=== PATIENT | female | born 1965 | race Caucasian/White ===

== ENCOUNTER 2018-05-22 20:30 | Outpatient (CLI) | payer BC | END 2018-05-22 20:31 | disposition home or self-care (01) | LOC: SLEEPLAB 20:30 | PROVIDERS: ATTEND Family Medicine | DX: G47.33 Obstructive sleep apnea (adult) (pediatric) (principal); G47.00 Insomnia, unspecified; R53.83 Other fatigue; R06.83 Snoring; I10 Essential (primary) hypertension; E66.9 Obesity, unspecified; Z68.43 Body mass index [BMI] 50.0-59.9, adult | CPT/HCPCS: 95811 ==

== ENCOUNTER 2018-08-17 15:53 | Outpatient (CLI) | payer BC | END 2018-08-17 15:54 | disposition home or self-care (01) | LOC: BICMAMMO 15:53 | PROVIDERS: ATTEND Family Medicine | DX: Z12.31 Encounter for screening mammogram for malignant neoplasm of breast (principal) | CPT/HCPCS: 77063; 77067 ==

== ENCOUNTER 2019-01-18 08:43 | Outpatient (CLI) | payer BC ==
--- NOTE | 2019-01-18 09:55 | RAD ---
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 The heart and mediastinal contours are grossly unremarkable. Lungs appear clear. The patient underwent a routine barium swallow. The lap band is in a normal anatomic position, seen a t the gastroesophageal junction when the patient is imaged while standing and swallowing contrast med ia. With the patient in the supine position there is gastroesophageal reflux which extends to the reg ion of the thoracic inlet. In the RPO position a small sliding-type hiatal hernia is seen, with a por tion of the gastric fundus sliding above the level of the lap band. The patient ingested a barium tablet which traverses the gastroesophageal junction/LAP-BAND without d elay. IMPRESSION: Gastroesophageal reflux to the level of the thoracic inlet when the patient is in the sup ine position. Transient small sliding type hiatal hernia noted in the RPO position.
== END 2019-01-18 08:44 | disposition home or self-care (01) ==
LOC: RAD 08:43
PROVIDERS: ATTEND Surgery
DX: K21.9 Gastro-esophageal reflux disease without esophagitis (principal); K44.9 Diaphragmatic hernia without obstruction or gangrene
CPT/HCPCS: 74220

== ENCOUNTER 2019-02-18 09:37 | Outpatient (CLI) | payer BC | END 2019-02-18 09:38 | disposition home or self-care (01) | LOC: DTY/OP 09:37 | PROVIDERS: ATTEND Surgery | DX: E66.01 Morbid (severe) obesity due to excess calories (principal) | CPT/HCPCS: 97802 ==

== ENCOUNTER 2019-03-15 22:08 | Observation (INO) | payer BC ==
[2019-03-15] MEDS ORDERED: diphenhydrAMINE 25 MG CAP ONE (22:35)
[2019-03-15] MEDS ORDERED: methylPREDNISolone Sod Succ/PF 125 MG/2 ML VIAL ONE (22:38)
[2019-03-15] MEDS ORDERED: diphenhydrAMINE 50 MG/ML VIAL ONE (22:38)
[2019-03-15] MEDS ORDERED: Famotidine/PF 20 mg/2ml Vial ONE (22:38)
[2019-03-15 23:32] LABS: #Eosinphils 0.2 thou/uL (0.0-0.7); #Lymphocytes 2.7 thou/uL (1.20-3.40); #Monocytes 0.7 thou/uL (0.11-0.59); #Neutrophils 4.7 thou/uL (1.40-6.50); %Basophils 0.2 % (0.0-1.0); %Eosinophils 2.5 % (0.0-10.0); %Lymphocytes 32.7 % (21.0-51.0); %Monocytes 7.9 % (0.0-10.0); %Neutrophils 56.6 % (42.0-75.0); Anisocytosis SLIGHT = 6-15 cells (100X) (0-5/hpf); Elliptocytes SLIGHT = 2-5 cells (100X) (0-1/hpf); Hemoglobin 7.7 g/dL (12.0-16.0); Hypochromia SLIGHT = 6-15 cells (100X) (0-5/hpf); MDiff Complete? YES; Mean Corpuscular HGB CONC 28.2 g/dL (32.0-36.0); Mean Corpuscular Hemoglobin 18.1 pg (27.0-31.0); Mean Platelet Volume 7.7 fL (7.4-10.4); Microcytosis MODERATE=15-30 cells (100X) (0-5/hpf); Platelet Count 227 thou/uL (130-400); Platelet Morphology Comment Appears Adequate; Red Blood Cell (RBC) Count 4.27 mill/uL (4.20-5.40); Reflex for Review?? YES; White Blood Cell (WBC) Count 8.4 thou/uL (4.8-10.8)
[2019-03-15 23:34] LABS: ALT (SGPT) 35 U/L (8-55); AST (SGOT) 39 U/L (5-34); Albumin 3.9 g/dL (3.5-5.0); Alkaline Phosphatase 73 U/L (40-150); Anion Gap 11 mmol/L (10-20); BUN (Urea Nitrogen) 15 mg/dL (9.8-20.1); Bilirubin, Total 0.6 mg/dL (0.2-1.2); Calc. Creatinine Clearance 0 mL/min (70-130); Calcium 9.4 mg/dL (7.8-10.44); Carbon Dioxide 27 mmol/L (22-29); Chloride 104 mmol/L (98-107); Estimated GFR-MDRD 81; Globulin 3.3 g/dL (2.4-3.5); Glucose 102 mg/dL (70-105); Potassium 3.8 mmol/L (3.5-5.1); Protein, Total 7.2 g/dL (6.0-8.3); Sodium 138 mmol/L (136-145)
[2019-03-16 04:02] VITALS: BMI 57.8
[2019-03-16] MEDS ORDERED: Ondansetron ODT 4 MG TAB SL PRN (04:05)
[2019-03-16] MEDS ORDERED: Ondansetron PF 4 MG/2 ML Vial IVP PRN ×2 (04:05→07:46)
[2019-03-16] MEDS ORDERED: Bacteriostatic Water 30 ML VIAL FS PRN (04:06)
[2019-03-16] MEDS: diphenhydrAMINE 50 MG/ML VIAL IVP SCH ×2 (05:53→13:42)
[2019-03-16] MEDS ORDERED: methylPREDNISolone Sod Succ/PF 125 MG/2 ML VIAL IVP SCH ×2 (06:00→14:00)
[2019-03-16] MEDS ORDERED: Acetaminophen 325 MG TAB PO PRN (07:46)
[2019-03-16 08:53] LABS: Iron 19 ug/dL (50-170); Iron Binding Capacity, Total 508 mcg/dL (265-497)
[2019-03-16] MEDS: Pantoprazole 40 MG VIAL IVP SCH ×2 (09:37→20:59)
[2019-03-16] MEDS: Sodium Chloride 0.9% 1,000 ML IV SCH (09:37)
--- NOTE | 2019-03-16 10:36 | RAD ---
CHEST 2 VIEWS: HISTORY: Tobacco history. Anemia. COMPARISON: 02/14/2013. FINDINGS: Cardiomegaly. Pulmonary vessels and hilum are normal. Costophrenic angles are clear. Slight rightward curvature o f the thoracic spine. No pneumothorax or osseous abnormalities. Incompletely evaluated gastric lap band. IMPRESSION: 1. Cardiomegaly. 2. No acute cardiopulmonary process. If there is concern for lung neoplasm, consider low-dose scree gege lung CT. POS: OFF
--- NOTE | 2019-03-16 11:28 | HP ---
HISTORY OF PRESENT ILLNESS: This is a 53-year-old female, who presents with swelling of her lips. The patient has a history of hypertension and morbid obesity. She was doing relatively well until 6 p.m. last night, her lower lip began to swell. By 9 p.m., it became much worse and she felt her lip was about to split. She then presented to the emergency room, where steroids were initiated. The patient does have a history of angioedema from ramipril several years ago. She has had no problems since. The only medication she is on is sertraline, metoprolol, and Aleve p.r.n. In reviewing her diet, the only suspicious issue has been pecans. Two nights prior, she had sunflower seeds and pecans. She has not had pecans in a while. She is presently being worked up by Dr. Paniagua for possible gastric sleeve. In December, she had her Lap-Band unfilled in preparation for the gastric sleeve. She is also in the process of being worked up by Dr. Crawford for cardiac clearance for her surgery. She also states that she has been having rectal bleeding off and on for the past several months. The only other significant recent history is that she is presently also seeing Dr. Massey and receiving some steroid injections for low back pain and also received 2 rounds of steroids. She states she has gained at least 15 pounds over the past 2 months. PAST MEDICAL HISTORY: Hypertension; hypertensive retinopathy in March 2009; morbid obesity; depression; tobacco abuse, quit in September 2007, has a 20 pack-year history; obstructive sleep apnea, on BiPAP at home; history of rosacea. SURGICAL HISTORY: Total abdominal hysterectomy, fibroidectomy in August 2003, x3, Lap-Band by Dr. Paniagua in March 2010. FAMILY HISTORY: Father in 2000, work related. Mother with Parkinson's. She does have two brothers, one sister with heart disease and diabetes. SOCIAL HISTORY: She does not drink. She has a [id number]-[id number] tobacco history, started at age 18. She works for the [employer]. She is . She has 1 son and 1 daughter and has had 1 stillborn. MEDICATIONS: 1. Metoprolol ER 200 at bedtime. 2. Sertraline 100 at bedtime. ALLERGIES: RAMIPRIL CAUSES ANGIOEDEMA. REVIEW OF SYSTEMS: As above. PHYSICAL EXAMINATION: VITAL SIGNS: Temperature 97.9, pulse 74, blood pressure 165/74, respirations 18, and pulse ox 95. GENERAL: No acute distress at this time. HEENT: Angioedema, nearly resolved. Feeling much better at this time. Pupils are equal and reactive to light. Extraocular movements are intact. TM, nose, throat are otherwise clear. No dental caries noted. NECK: Obese. HEART: Regular rate and rhythm. LUNGS: Clear. ABDOMEN: Soft, morbidly obese, nontender. EXTREMITIES: No edema. LABORATORY DATA: White count 8.4, hemoglobin and hematocrit are 7.7 and 27.3 with micro indices, and platelets 227. Electrolytes are normal. Creatinine 0.75, BUN 15. Liver function tests, normal. ASSESSMENT: 1. Angioedema, most likely related to pecans. Swelling has improved significantly since starting steroids in the emergency room. 2. Hypochromic microcytic anemia, possibly related to iron deficiency anemia and gastrointestinal bleed. 3. Rectal bleeding x2 to 3 months. 4. Morbid obesity with recent weight gain. Lap-Band was unfilled as well as the patient has received multiple rounds of steroids recently for low back pain. 5. Hypertension with retinopathy. 6. A 20-year tobacco history, quit in 2006. 7. Sleep apnea. 8. Chronic low back pain. PLAN: 1. Iron, ferritin, TIBC. 2. Consult GI for possible EGD and colonoscopy. 3. The patient probably needs a CT of the abdomen and pelvis. We will hold until seen by GI. 4. N.p.o. 5. Chest x-ray. 6. Continue steroids and hydration. Job ID: [id number]
[2019-03-16] MEDS ORDERED: GoLYTELY 4,000 ml Bottle PO SCH (16:15)
[2019-03-16] MEDS ORDERED: cloNIDine 0.1 MG TAB PO PRN (18:32)
--- NOTE | 2019-03-16 18:41 | CON ---
DATE OF CONSULTATION: 03/16/2019 HISTORY OF PRESENT ILLNESS: I have been asked to see Ms. Pretty by Dr. Last, her primary physician who admitted her for a bout of angioedema. When she got to the hospital, I found she was severely anemic with a hemoglobin of 7.7 and MCV of 64. Last summer in March, her hemoglobin was 10.2 and her MCV was 64. She notes that over the past several months, she has been having worsening shortness of breath with any exertion at all. She has had some rectal bleeding, at times, she is constipated, but noted this to be bright red with drips. She does not have any menstrual bleeding anymore as she has had a hysterectomy. She has not had any melena or nausea or vomiting or hematemesis. She states she has been getting a workup with Dr. Wojciech Paniagua, she wants to get a gastric sleeve. She has had a previous gastric band. The liquid dwell on the band has been removed. Apparently, she had a barium swallow x-ray on 01/18/2019 and that showed severe reflux with transient sliding-type hiatal hernia. Also in the past, although it has been about 5 years, she had an ultrasound in 2013 of the abdomen, which showed borderline splenomegaly. Presently, she is resting comfortably in bed. She has had no acute bleeding since being in the hospital. PAST MEDICAL HISTORY: 1. Morbid obesity. 2. Hypertension. 3. Depression. 4. Sleep apnea, on BiPAP at home. 5. History of rosacea. 6. Chronic anemia to some degree, seen in reviewing her old labs. This has been microcytic with confirmed iron deficiency, dating back to at least 2012. PAST SURGICAL HISTORY: section x3, hysterectomy, gastric band. FAMILY HISTORY: Negative for colorectal cancer, liver disease, or anemia. SOCIAL HISTORY: She does not drink. She used to smoke, stopped smoking in 2006. She has a son and a daughter. MEDICATIONS AT HOME: 1. Metoprolol. 2. Sertraline. ALLERGIES: RAMIPRIL PREVIOUSLY CAUSED ANGIOEDEMA. REVIEW OF SYSTEMS: Negative for dysphagia, odynophagia, or vomiting. She occasionally gets some reflux, but denies any overt severe heartburn for which she would need to take any regular medicines. She denies NSAID use. MEDICATIONS: Here; 1. Acetaminophen. 2. Metoprolol. 3. Zofran. 4. Protonix 40 IV q.12. 5. Sertraline. 6. Normal saline at 50 mL/hour. PHYSICAL EXAMINATION: VITAL SIGNS: Temperature 97, pulse 70, blood pressure 144/71. HEENT: Oropharynx without lesions. She does not have any swelling or edema of the buccal mucosa or lips or neck now. She has no stridor. LUNGS: Clear. HEART: Regular rate and rhythm without clicks or murmurs. ABDOMEN: Soft. It is protuberant and obese, but there is no rebound or guarding. There are scars that are consistent with a gastric band in the left upper abdomen and her previous gynecologic surgery in the lower abdomen. There is no evidence of hernias. EXTREMITIES: No clubbing, cyanosis, or edema. LABORATORY STUDIES: Sodium 138, potassium 3.8, chloride 104, bicarb 27, BUN and creatinine are 15 and 0.7. AST 39, ALT 35, alkaline phosphatase 73. Iron 19, TIBC is 508, saturation 4%. Albumin 3.9, protein is 7.2, and globulin is 3.3. Vitamin D is 6.6, back in March of 2016. ASSESSMENT: 1. Severe iron deficiency anemia with history of rectal bleeding in the past. She has had progressive shortness of breath with any type of walking or exertion over the past several months. She has had no overt anginal chest pain. 2. Rectal bleeding, seems to be outlet in nature, but with her severe anemia, needs to be further worked up. 3. Angioedema, which brought her to the hospital. Her doctor thinks that this was from pecans as she had been eating these recently. PLAN: I have talked to Dr. Jhon Last. He preferred to keep her in the hospital and work up here as she is morbidly obese and has risk factors that would preclude the outpatient endoscopy anyway. The patient is agreeable for upper and lower endoscopy, we will proceed with that tomorrow morning. Risks, benefits, and possible complications of procedure had been discussed with the patient. Job ID: [id number]
[2019-03-17 05:56] LABS: #Lymphocytes 2.1 thou/uL (1.20-3.40); #Monocytes 0.6 thou/uL (0.11-0.59); #Neutrophils 5.1 thou/uL (1.40-6.50); %Basophils 0.2 % (0.0-1.0); %Eosinophils 0.3 % (0.0-10.0); %Monocytes 7.7 % (0.0-10.0); %Neutrophils 64.8 % (42.0-75.0); Hemoglobin 6.8 g/dL (12.0-16.0); Mean Corpuscular HGB CONC 28.3 g/dL (32.0-36.0); Mean Corpuscular Hemoglobin 18.2 pg (27.0-31.0); Mean Corpuscular Volume 64.4 fL (78.0-98.0); Platelet Count 215 thou/uL (130-400); RBC Distribution Width 17.7 % (11.5-14.5); Red Blood Cell (RBC) Count 3.72 mill/uL (4.20-5.40); White Blood Cell (WBC) Count 7.8 thou/uL (4.8-10.8)
[2019-03-17 06:06] LABS: Anion Gap 11 mmol/L (10-20); BUN (Urea Nitrogen) 12 mg/dL (9.8-20.1); Calc. Creatinine Clearance 241 mL/min (70-130); Calcium 8.4 mg/dL (7.8-10.44); Carbon Dioxide 23 mmol/L (22-29); Chloride 109 mmol/L (98-107); Estimated GFR-MDRD Greater than 90; Glucose 94 mg/dL (70-105); Potassium 3.6 mmol/L (3.5-5.1); Sodium 139 mmol/L (136-145)
[2019-03-17] MEDS: Sodium Chloride 0.9% 1,000 ML IV SCH (07:50)
[2019-03-17] MEDS: Pantoprazole 40 MG VIAL IVP SCH (07:50)
--- NOTE | 2019-03-17 10:36 | PRG ---
DATE OF SERVICE: 03/17/2019 SUBJECTIVE: The patient states she still has small amounts of bleeding from her rectum. She does state that over the past 6 months, she has taken Aleve anywhere from 1 to 3 times per week. She also is taking other medications from Dr. Massey for her low back pain. She does not recall what these medicines are. I suspect they may be additional non-steroidals. OBJECTIVE: VITAL SIGNS: Temperature 97.5, pulse 63, respirations 18, pulse ox 94, and blood pressure 126/77. HEART: Regular rate and rhythm. LUNGS: Clear. ABDOMEN: Soft and obese. EXTREMITIES: No edema. LABORATORY DATA: White count 7.8, H and H of 6.8 and 23.9, and platelet of 215. Sodium 139, potassium 3.6, chloride 109, CO2 of 23, creatinine 0.61, and BUN 12. Iron 19, TIBC 508, percent saturation 4, ferritin 6.62. IMAGING DATA: Chest x-ray with cardiomegaly. ASSESSMENT: 1. Angioedema, improved since admission. To confirm the pecan allergy, recommended that the patient can retest herself in approximately 1 to 2 months with small amounts of pecan to see whether her lip swelling returns. The patient is not on any ANGELES inhibitors or ARB. Other food allergies may causes problem as well as other pathologies such as cancer. 2. Hypochromic microcytic iron deficiency anemia. Iron level low, ferritin level low, and percent sat 4. 3. Rectal bleeding. Suspect the patient has probable gastritis as well as colitis from non-steroidals. Probably responsible for her anemia. 4. Morbid obesity. 5. Cardiomegaly, on chest x-ray. This will have to be worked up probably as an outpatient. 6. Hypertension with retinopathy. 7. A 20-year tobacco history. 8. Sleep apnea. 9. Chronic low back pain. PLAN: 1. Hold all non-steroidals in the near future. 2. Probably will need PPIs for the next 30 to 90 days. 3. EGD and colonoscopy today by Dr. Trevizo. Job ID: [id number]
--- NOTE | 2019-03-17 13:03 | OP ---
DATE OF PROCEDURE: 03/17/2019 PROCEDURES PERFORMED: Esophagogastroduodenoscopy with biopsy, colonoscopy (incomplete). INDICATIONS FOR PROCEDURE: Symptomatic anemia, iron deficiency anemia. DESCRIPTION OF PROCEDURE: After the risks and benefits of the procedures were explained to the patient including risks of bleeding infection, perforation, reactions to anesthesia, aspiration, and/or pain, informed consent was obtained. The patient was then taken to the endoscopy suite, where deep sedation was administered via propofol and anesthesia support. Once adequate sedation was achieved, the standard gastroscope was introduced into the mouth with intubation of the esophagus, stomach, and the proximal small intestines with the findings listed below. Upon conclusion of this portion of the procedure, all equipment was removed from the patient and the bed was rotated 180 degrees in anticipation of the colonoscopy. After a digital rectal examination was performed, the standard colonoscope was introduced into the rectum and advanced to the proximal ascending colon with further progress limited and due to significant colon redundancy and tortuosity despite the use of abdominal pressure. Cecal intubation was not able to be achieved during this examination. The quality of the prep was good to excellent with small pockets of liquid stools seen throughout the colon. The patient tolerated the procedure well with no immediate perioperative complications. Upon conclusion of the procedures, the patient was taken to PACU in satisfactory condition after removal of all equipment. EGD FINDINGS: Esophagus. Normal-appearing mucosa was seen in the proximal, mid, and distal esophagus as well as at the GE junction. There was no evidence of erosions, ulcerations, mass, lesions, or active/recent bleeding. Stomach. Normal-appearing mucosa was seen in the gastric cardia, fundus, body, greater curvature, antrum, and incisura. There was no evidence of erosions, ulcerations, mass, lesions, or active/recent bleeding. Duodenum. Normal-appearing mucosa was seen in both the duodenal bulb and second portion of the duodenum. There was no evidence of erosions, ulcerations, mass, lesions, or active/recent bleeding. Random duodenal biopsies were taken for evaluation of possible celiac sprue. IMPRESSION: Normal upper endoscopy. COLONOSCOPY FINDINGS: Digital rectal exam. Large erythematous and actively bleeding external hemorrhoids were seen on external examination. Sphincter tone was intact with normal pressure, no masses palpated on during this portion of the exam. Colon findings. There was a [id number]-[id number] amount of retained liquid stool seen throughout the entire colon, but was easily amenable to irrigation and suctioning. However, the colonoscope could not be advanced into the cecum due to significant redundancy and tortuosity of the colon, most likely due to the patient's body habitus. As such, the colonoscope could only be advanced to the proximal ascending colon with visualization of the ileocecal valve only. Of the mucosa achieved, normal-appearing mucosa was seen at the ileocecal valve, ascending colon, transverse colon, descending colon, sigmoid colon, and rectum. On rectal retroflexion, there were no abnormality seen. There was no evidence of erosions, ulcerations, mass, lesions, or active/recent bleeding seen during the colonic portion of this examination. IMPRESSION: 1. Incomplete colonoscopy with inability to intubate the cecum secondary to colonic redundancy and tortuosity. 2. Large erythematous and actively bleeding external hemorrhoids (could be possible source of anemia). RECOMMENDATION: 1. We will follow up on the biopsy results for evaluation of possible celiac disease and treat accordingly. 2. Would recommend a higher fiber diet and standard hemorrhoid precautions to avoid further exacerbation of her actively bleeding external hemorrhoids. 3. Would administer either Preparation-H or Proctofoam during this admission given her significant external hemorrhoids. 4. We will continue to trend H and H and transfuse as necessary to maintain an H and H of 7/21. 5. Continue to monitor clinically for signs of active GI bleeding. 6. The patient could be followed up in the outpatient GI Clinic for further evaluation of her anemia with possible capsule endoscopy at that time. We will continue to follow. Please call with any questions. Job ID: [id number]
[2019-03-17] MEDS ORDERED: PROPOFOL 200 MG/20 ML VIAL ONE (15:34)
[2019-03-17 15:53] VITALS: BP 191/60; TEMP 97.6
--- NOTE | 2019-03-18 02:33 | DIS ---
DATE OF ADMISSION: 03/16/2019 DATE OF DISCHARGE: 03/17/2019 DISCHARGE DIAGNOSES: 1. Angioedema, resolved secondary to pecans. 2. Iron deficiency anemia secondary to blood loss. 3. Hemorrhoidal bleeding. 4. Morbid obesity. 5. Hypertension with retinopathy. 6. Twenty year tobacco history. 7. Sleep apnea. 8. Chronic low back pain. BRIEF HISTORY: This is a 53-year-old female who presents with swelling of her lips following eating pecans. It has been a while since she has had any pecans. 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 She was seen in the ER and was started on steroids and hydration. HOSPITAL COURSE: Initial labs revealed anemia with hemoglobin of 7.7 and hematocrit of 27.3. Iron level was obtained, which was found to be 19 with a TIBC of 508 and a percent sat of 4 with a ferritin of 6.62. The patient underwent EGD and colonoscopy by Dr. Garcia, which was unremarkable except for hemorrhoidal bleed. The patient's hemoglobin did drop from 7.7 to 6.8, which was delusional from the IV hydration with normal saline. The patient remains asymptomatic. She will be discharged on Metamucil daily. She will take Colace 100 b.i.d. and ferrous sulfate 325 b.i.d. She will follow up in the office in 1 week and we will retest her CBC. She will also follow up with GI. We will also discuss the treatment of hemorrhoids further as it really pertains to a high-fiber diet. Her chest x-ray did show some cardiomegaly. We will have to re-evaluate this also. Hopefully, we can correct her anemia, if hopefully the cardiomegaly can resolve. Job ID: [id number]
== END 2019-03-17 18:04 | disposition home or self-care (01) ==
LOC: ERS 22:08 → 2SW 03-16 02:25
PROVIDERS: ADMIT Family Medicine; ATTEND Family Medicine
PROC: 0DB98ZX Excision of Duodenum, Via Natural or Artificial Opening Endoscopic, Diagnostic (ICD-10-PCS; principal; 2019-03-17)
PROC: 0DJD8ZZ Inspection of Lower Intestinal Tract, Via Natural or Artificial Opening Endoscopic (ICD-10-PCS; 2019-03-17)
DX: D50.0 Iron deficiency anemia secondary to blood loss (chronic) (principal); K64.4 Residual hemorrhoidal skin tags; K63.89 Other specified diseases of intestine; G47.33 Obstructive sleep apnea (adult) (pediatric); F32.9 Major depressive disorder, single episode, unspecified; G89.29 Other chronic pain; M54.5 Low back pain; H35.039 Hypertensive retinopathy, unspecified eye; I11.9 Hypertensive heart disease without heart failure; T78.1XXA Other adverse food reactions, not elsewhere classified, initial encounter; T78.3XXA Angioneurotic edema, initial encounter; E66.01 Morbid (severe) obesity due to excess calories; Z68.43 Body mass index [BMI] 50.0-59.9, adult; Z87.891 Personal history of nicotine dependence; Z79.899 Other long term (current) drug therapy; Z88.8 Allergy status to other drugs, medicaments and biological substances; Z99.89 Dependence on other enabling machines and devices
CPT/HCPCS: 36415; 71046; 80048; 80053; 82728; 83540; 83550; 85025; 85060; 88305; 96361; 96374; 96375; 96376; C9113; G0378; J1200; J2704; J2930; Q0163; S0028

== ENCOUNTER 2020-08-22 11:14 | Outpatient (CLI) | payer BC ==
--- NOTE | 2020-08-22 13:09 | MMO ---
Bilateral MAMMO Bilat Screen [facility]. CLINICAL HISTORY: Patient is 54 years old and is seen for screening. The patient has no family history of breast cancer. The patient has no personal history of cancer. VIEWS: The views performed were: bilateral mediolateral oblique with tomosynthesis and cleavage view. FILMS COMPARED: The present examination has been compared to prior imaging studies performed at [facility] on 10/28/2011 and 08/17/2018. This study has been interpreted with the assistance of computer-aided detection. MAMMOGRAM FINDINGS: There are scattered fibroglandular densities. There are no suspicious masses, suspicious calcifications, or new areas of architectural distortion. IMPRESSION: THERE IS NO MAMMOGRAPHIC EVIDENCE OF MALIGNANCY. A ROUTINE FOLLOW-UP MAMMOGRAM IN 1 YEAR IS RECOMMENDED. THE RESULTS OF THIS EXAM WERE SENT TO THE PATIENT. ACR BI-RADS Category 1 - Negative MAMMOGRAPHY NOTE: 1. A negative mammogram report should not delay a biopsy if a dominant of clinically suspicious mass is present. 2. Approximately 10% to 15% of breast cancers are not detected by mammography. 3. Adenosis and dense breasts may obscure an underlying neoplasm. Reported by: IRIS COLEMAN MD Electonically Signed: [id number]
== END 2020-08-22 11:15 | disposition home or self-care (01) ==
LOC: BICMAMMO 11:14
PROVIDERS: ATTEND Family Medicine
DX: Z12.31 Encounter for screening mammogram for malignant neoplasm of breast (principal)
CPT/HCPCS: 77063; 77067

== ENCOUNTER 2021-02-22 10:58 | Outpatient (CLI) | payer BC | END 2021-02-22 10:59 | disposition home or self-care (01) | LOC: RAD 10:58 | PROVIDERS: ATTEND Surgery | DX: K21.9 Gastro-esophageal reflux disease without esophagitis (principal); K44.9 Diaphragmatic hernia without obstruction or gangrene | CPT/HCPCS: 74220 ==

== ENCOUNTER 2021-02-27 13:42 | Outpatient (CLI) | payer BC | END 2021-02-27 13:43 | disposition home or self-care (01) | LOC: DTY/OP 13:42 | PROVIDERS: ATTEND Surgery | DX: E66.01 Morbid (severe) obesity due to excess calories (principal) | CPT/HCPCS: 97802 ==

== ENCOUNTER 2021-02-27 15:32 | Outpatient (CLI) | payer BC | END 2021-02-27 15:33 | disposition home or self-care (01) | LOC: BICRAD 15:32 | PROVIDERS: ATTEND Internal Medicine Rheumatology | DX: R06.2 Wheezing (principal); R70.0 Elevated erythrocyte sedimentation rate; I51.7 Cardiomegaly | CPT/HCPCS: 71046 ==

== ENCOUNTER 2021-03-29 16:09 | Outpatient (CLI) | payer BC | END 2021-03-29 16:10 | disposition home or self-care (01) | LOC: BICRAD 16:09 | PROVIDERS: ATTEND Internal Medicine Rheumatology | DX: M46.1 Sacroiliitis, not elsewhere classified (principal) | CPT/HCPCS: 72202 ==

== ENCOUNTER 2021-07-16 15:16 | Outpatient (CLI) | payer BC ==
[2021-07-16 16:07] LABS: #Basophils 0.1 10x3/uL (0.0-0.2); #Eosinphils 0.2 10x3/uL (0.0-0.5); #Monocytes 0.5 10x3/uL (0.0-1.1); #Neutrophils 5.4 10x3/uL (1.5-8.4); %Basophils 0.6 % (0.0-2.0); %Eosinophils 2.1 % (0.0-6.0); %Lymphocytes 24.1 % (18.0-47.0); %Monocytes 6.3 % (0.0-10.0); %Neutrophils 66.5 % (40.0-75.0); Mean Corpuscular HGB CONC 30.1 g/dL (32.0-36.0); Mean Corpuscular Hemoglobin 24.9 pg (27.0-33.0); Mean Platelet Volume 10.7 fl (7.4-10.4); Platelet Count 241 10x3/uL (150-450); RBC Distribution Width 14.5 % (11.5-14.5); Red Blood Cell (RBC) Count 4.81 10x6/uL (3.90-5.03); White Blood Cell (WBC) Count 8.1 10x3/uL (3.5-10.5)
[2021-07-16 16:18] LABS: ALT (SGPT) 36 U/L (8-55); AST (SGOT) 43 U/L (5-34); Alkaline Phosphatase 78 U/L (40-110); Anion Gap 13 mmol/L (10-20); BUN (Urea Nitrogen) 12 mg/dL (9.8-20.1); Bilirubin, Total 0.8 mg/dL (0.2-1.2); Calc. Creatinine Clearance 0 mL/min (70-130); Calcium 10.4 mg/dL (7.8-10.44); Carbon Dioxide 28 mmol/L (22-29); Chloride 103 mmol/L (98-107); Globulin 3.7 g/dL (2.4-3.5); Glucose 110 mg/dL (70-105); Potassium 3.8 mmol/L (3.5-5.1); Protein, Total 7.7 g/dL (6.0-8.3); Sodium 140 mmol/L (136-145)
[2021-07-16 20:22] LABS: Hemoglobin A1c 5.2 % (4.0-6.0)
[2021-07-17 12:41] LABS: SARS-CoV-2 PCR by NAA Not Detected (NotDetected)
== END 2021-07-16 15:17 | disposition home or self-care (01) ==
LOC: LABBT 15:16
PROVIDERS: ATTEND Surgery
DX: Z01.818 Encounter for other preprocedural examination (principal); K21.9 Gastro-esophageal reflux disease without esophagitis; Z20.822 Contact with and (suspected) exposure to COVID-19
CPT/HCPCS: 71046; 80053; 83036; 85025; 93005; 93010; U0003; U0005

== ENCOUNTER 2021-07-19 06:23 | Day surgery (SDC) | payer BC ==
[2021-07-18 11:47] VITALS: BMI 54.8
[2021-07-19] MEDS ORDERED: ceFAZolin 2 GM/DEX 5% 100 ML BAG ONE (06:42)
[2021-07-19] MEDS ORDERED: Heparin 5,000 UNITS/ML VIAL ONE (06:42)
[2021-07-19] MEDS ORDERED: Midazolam HCl 2 mg/2 ml Vial ONE (06:49)
[2021-07-19] MEDS ORDERED: Fentanyl 100 MCG/2 ML VIAL ONE (06:49)
[2021-07-19] MEDS ORDERED: Bupivacaine 0.25% HCL 30 ML VIAL ONE (07:06)
[2021-07-19] MEDS ORDERED: Lidocaine 1% w/Epinephrine 1:100K 20 ML VIAL ONE (07:06)
[2021-07-19] MEDS ORDERED: Ketamine 50 MG/ML (10ML VIAL) ONE (07:18)
[2021-07-19] MEDS ORDERED: Lidocaine 2% Jelly 5 ML TUBE ONE (07:18)
[2021-07-19] MEDS ORDERED: Lidocaine 1% PF 5 ML VIAL ONE (07:44)
[2021-07-19] MEDS ORDERED: PROPOFOL 200 MG/20 ML VIAL ONE (07:44)
[2021-07-19] MEDS ORDERED: Rocuronium Bromide 10 MG/ML (10ML VIAL) ONE (07:44)
[2021-07-19] MEDS ORDERED: Glycopyrrolate 0.2 MG/ML 5 ML SYRINGE ONE (07:44)
[2021-07-19] MEDS ORDERED: Dexamethasone 20 MG/5 ML VIAL ONE (07:44)
[2021-07-19] MEDS ORDERED: PHENYLEPHRINE-NS 100 MCG/ML 10 ML SYRINGE ONE (07:44)
[2021-07-19] MEDS ORDERED: Ketorolac Tromethamine 30 MG/ML VIAL ONE (07:44)
[2021-07-19] MEDS ORDERED: Ondansetron PF 4 MG/2 ML Vial ONE (07:44)
[2021-07-19] MEDS ORDERED: SUGAMMADEX SODIUM 200 MG/2 ML VIAL ONE (08:29)
[2021-07-19] MEDS ORDERED: HYDROmorphone 2 MG/ML VIAL ONE (08:29)
== END 2021-07-19 12:50 | disposition home or self-care (01) ==
LOC: SDC 06:23
PROVIDERS: ATTEND Surgery
PROC: 0DP60CZ Removal of Extraluminal Device from Stomach, Open Approach (ICD-10-PCS; principal; 2021-07-19)
DX: K95.09 Other complications of gastric band procedure (principal); K21.9 Gastro-esophageal reflux disease without esophagitis; I10 Essential (primary) hypertension; E66.01 Morbid (severe) obesity due to excess calories; Z68.43 Body mass index [BMI] 50.0-59.9, adult; Z88.8 Allergy status to other drugs, medicaments and biological substances
CPT/HCPCS: J1100; J1170; J1644; J1885; J2250; J2405; J2704; J3010; S0020

== ENCOUNTER 2021-12-10 15:09 | Outpatient (CLI) | payer BC ==
[2021-12-10 15:58] LABS: Hemoglobin 12.5 g/dL (12.0-15.5); Mean Corpuscular HGB CONC 30.9 g/dL (32.0-36.0); Mean Corpuscular Hemoglobin 26.4 pg (27.0-33.0); Mean Corpuscular Volume 85.4 fl (81.6-98.3); Mean Platelet Volume 10.6 fl (7.4-10.4); Platelet Count 240 10x3/uL (150-450); RBC Distribution Width 13.6 % (11.5-14.5); Red Blood Cell (RBC) Count 4.74 10x6/uL (3.90-5.03); White Blood Cell (WBC) Count 9.8 10x3/uL (3.5-10.5)
[2021-12-10 16:09] LABS: Prothrombin Time 11.5 sec (9.5-12.1)
[2021-12-10 16:11] LABS: Anion Gap 14 mmol/L (10-20); BUN (Urea Nitrogen) 16 mg/dL (9.8-20.1); Calc. Creatinine Clearance 0 mL/min (70-130); Calcium 9.1 mg/dL (7.8-10.44); Carbon Dioxide 26 mmol/L (22-29); Chloride 104 mmol/L (98-107); Glucose 135 mg/dL (70-105); Potassium 4.1 mmol/L (3.5-5.1); Sodium 140 mmol/L (136-145)
[2021-12-10 23:47] LABS: SARS-CoV-2 PCR by NAA Not Detected (NotDetected)
== END 2021-12-10 15:10 | disposition home or self-care (01) ==
LOC: LABBT 15:09
PROVIDERS: ATTEND Urology
DX: Z01.818 Encounter for other preprocedural examination (principal); N20.1 Calculus of ureter; Z20.822 Contact with and (suspected) exposure to COVID-19
CPT/HCPCS: 80048; 81001; 85027; 85610; 85730; 87086; 93005; 93010; U0003; U0005

== ENCOUNTER 2021-12-11 09:59 | Day surgery (SDC) | payer BC ==
[2021-12-10 10:04] VITALS: BMI 55.0
[2021-12-11] MEDS ORDERED: Lidocaine 1% MPF 2 ML VIAL ONE (13:02)
[2021-12-11] MEDS ORDERED: Iothalamate Meglumine 60% 50 ML VIAL FS ONE (14:19)
[2021-12-11] MEDS ORDERED: Fentanyl 250 MCG/5 ML VIAL ONE (15:06)
[2021-12-11] MEDS ORDERED: Levofloxacin 500 mg/D5W 100 ml Premix Bag ONE (15:09)
[2021-12-11] MEDS ORDERED: Dexamethasone 20 MG/5 ML VIAL ONE (15:19)
[2021-12-11] MEDS ORDERED: Ondansetron PF 4 MG/2 ML Vial ONE (15:19)
[2021-12-11] MEDS ORDERED: PROPOFOL 200 MG/20 ML VIAL ONE (15:19)
[2021-12-11] MEDS ORDERED: Succinylcholine 200 MG/10 ml SYRINGE FS ONE (15:19)
[2021-12-11] MEDS ORDERED: PHENYLEPHRINE-NS 100 MCG/ML 10 ML SYRINGE ONE (15:19)
[2021-12-11] MEDS ORDERED: Oxybutynin 5 MG TAB ONE (16:04)
[2021-12-11] MEDS ORDERED: Phenazopyridine HCl 100 MG TAB ONE (16:04)
== END 2021-12-11 17:25 | disposition home or self-care (01) ==
LOC: SDC 09:59
PROVIDERS: ATTEND Urology
PROC: 0T778DZ Dilation of Left Ureter with Intraluminal Device, Via Natural or Artificial Opening Endoscopic (ICD-10-PCS; principal; 2021-12-11)
DX: N20.2 Calculus of kidney with calculus of ureter (principal); I10 Essential (primary) hypertension; E66.01 Morbid (severe) obesity due to excess calories; Z68.43 Body mass index [BMI] 50.0-59.9, adult; Z87.891 Personal history of nicotine dependence; Z79.899 Other long term (current) drug therapy; Z88.8 Allergy status to other drugs, medicaments and biological substances; Z98.84 Bariatric surgery status
CPT/HCPCS: 74018; 74420; C2617; J1100; J1956; J2405; J2704; J3010; Q9961-U8

== ENCOUNTER 2021-12-13 13:35 | Outpatient (CLI) | payer BC ==
[2021-12-14 00:17] LABS: SARS-CoV-2 PCR by NAA Not Detected (NotDetected)
== END 2021-12-13 13:36 | disposition home or self-care (01) ==
LOC: LABBT 13:35
PROVIDERS: ATTEND Urology
DX: Z01.812 Encounter for preprocedural laboratory examination (principal); N20.1 Calculus of ureter; Z20.822 Contact with and (suspected) exposure to COVID-19
CPT/HCPCS: U0003; U0005

== ENCOUNTER 2021-12-18 08:13 | Day surgery (SDC) | payer BC ==
[2021-12-16 09:44] VITALS: BMI 55.0
[2021-12-18] MEDS ORDERED: Lidocaine 1% MPF 2 ML VIAL ONE (11:19)
[2021-12-18] MEDS ORDERED: Sodium Chloride 0.9% 0 ML ONE (11:19)
[2021-12-18] MEDS ORDERED: cefTRIAXone\\ROCEPHIN 2 GM VIAL ONE ×2 (11:19→12:17)
[2021-12-18] MEDS ORDERED: Iothalamate Meglumine 60% 50 ML VIAL FS ONE (12:03)
[2021-12-18] MEDS ORDERED: Fentanyl 250 MCG/5 ML VIAL ONE (12:10)
[2021-12-18] MEDS ORDERED: Sodium Chloride 0.9% 100 ML ONE (12:17)
[2021-12-18] MEDS ORDERED: PROPOFOL 200 MG/20 ML VIAL ONE (12:34)
[2021-12-18] MEDS ORDERED: Ondansetron PF 4 MG/2 ML Vial ONE (12:34)
[2021-12-18] MEDS ORDERED: Dexamethasone 20 MG/5 ML VIAL ONE (12:34)
[2021-12-18] MEDS ORDERED: Lidocaine 1% PF 5 ML VIAL ONE (12:34)
[2021-12-18] MEDS ORDERED: Rocuronium Bromide 10 MG/ML (10ML VIAL) ONE (12:34)
[2021-12-18] MEDS ORDERED: Glycopyrrolate 0.2 MG/ML 5 ML SYRINGE ONE (12:34)
[2021-12-18] MEDS ORDERED: ePHEDrine 50 MG/ML VIAL ONE (12:34)
[2021-12-18] MEDS ORDERED: Ketorolac Tromethamine 30 MG/ML VIAL ONE (13:37)
[2021-12-18] MEDS ORDERED: Phenazopyridine HCl 100 MG TAB ONE (13:38)
[2021-12-18] MEDS ORDERED: Oxybutynin 5 MG TAB ONE (13:38)
[2021-12-23 12:13] LABS: CA Oxalate Dihydrate 10 % (.); CA Oxalate Monohydrate 50 % (.); Color Brown (.)
== END 2021-12-18 15:49 | disposition home or self-care (01) ==
LOC: SDC 08:13
PROVIDERS: ATTEND Urology
PROC: 0T778DZ Dilation of Left Ureter with Intraluminal Device, Via Natural or Artificial Opening Endoscopic (ICD-10-PCS; principal; 2021-12-18)
PROC: 0TC78ZZ Extirpation of Matter from Left Ureter, Via Natural or Artificial Opening Endoscopic (ICD-10-PCS; principal; 2021-12-18)
DX: N13.2 Hydronephrosis with renal and ureteral calculous obstruction (principal); I10 Essential (primary) hypertension; G47.33 Obstructive sleep apnea (adult) (pediatric); E66.01 Morbid (severe) obesity due to excess calories; Z68.43 Body mass index [BMI] 50.0-59.9, adult; Z87.891 Personal history of nicotine dependence; Z79.2 Long term (current) use of antibiotics; Z79.899 Other long term (current) drug therapy; Z88.8 Allergy status to other drugs, medicaments and biological substances; Z98.84 Bariatric surgery status
CPT/HCPCS: 74018; 74420; 82365; 88300; C2617; J0696; J1100; J1885; J2405; J2704; J3010; J3490; Q9961-U8

== ENCOUNTER 2022-01-24 13:39 | Outpatient (CLI) | payer BC ==
[2022-01-24 14:18] LABS: #Basophils 0.1 10x3/uL (0.0-0.2); #Eosinphils 0.2 10x3/uL (0.0-0.5); #Monocytes 0.5 10x3/uL (0.0-1.1); #Neutrophils 4.9 10x3/uL (1.5-8.4); %Basophils 0.9 % (0.0-2.0); %Eosinophils 2.6 % (0.0-6.0); %Lymphocytes 29.1 % (18.0-47.0); %Monocytes 6.5 % (0.0-10.0); %Neutrophils 60.7 % (40.0-75.0); Hemoglobin 12.4 g/dL (12.0-15.5); Mean Corpuscular HGB CONC 30.4 g/dL (32.0-36.0); Mean Corpuscular Volume 85.5 fl (81.6-98.3); Mean Platelet Volume 11.3 fl (7.4-10.4); Platelet Count 216 10x3/uL (150-450); Red Blood Cell (RBC) Count 4.77 10x6/uL (3.90-5.03)
[2022-01-24 14:36] LABS: Anion Gap 12 mmol/L (10-20); BUN (Urea Nitrogen) 16 mg/dL (9.8-20.1); Calc. Creatinine Clearance 0 mL/min (70-130); Calcium 9.2 mg/dL (7.8-10.44); Carbon Dioxide 27 mmol/L (22-29); Chloride 105 mmol/L (98-107); Glucose 141 mg/dL (70-105); Sodium 140 mmol/L (136-145)
[2022-01-24 14:37] LABS: PTT 25.1 sec (22.0-33.0); Prothrombin Time 10.8 sec (9.5-12.1)
[2022-01-24 22:15] LABS: SARS-CoV-2 PCR by NAA Not Detected (NotDetected)
== END 2022-01-24 13:40 | disposition home or self-care (01) ==
LOC: LABBT 13:39
PROVIDERS: ATTEND Urology
DX: Z01.812 Encounter for preprocedural laboratory examination (principal); N20.2 Calculus of kidney with calculus of ureter; I10 Essential (primary) hypertension; E66.01 Morbid (severe) obesity due to excess calories; Z98.84 Bariatric surgery status; R35.0 Frequency of micturition; Z20.822 Contact with and (suspected) exposure to COVID-19
CPT/HCPCS: 80048; 85025; 85610; 85730; U0003; U0005

== ENCOUNTER 2022-04-14 11:00 | Inpatient (IN) | payer BC ==
[2022-04-14 14:22] VITALS: BMI 53.9
[2022-04-16] MEDS ORDERED: Heparin 5,000 UNITS/ML VIAL ONE (10:08)
[2022-04-16] MEDS ORDERED: HYDROmorphone 0.5 MG/0.5 ML SYRINGE ONE (11:08)
[2022-04-16] MEDS ORDERED: fentaNYL Citrate/PF 100 MCG/2 ML SYRINGE ONE (11:08)
[2022-04-16] MEDS ORDERED: SUGAMMADEX SODIUM 200 MG/2 ML VIAL ONE (11:09)
[2022-04-16] MEDS ORDERED: Lidocaine 1% w/Epinephrine 1:100K 20 ML VIAL ONE (11:12)
[2022-04-16] MEDS ORDERED: Bupivacaine 0.25% HCL 30 ML VIAL ONE (11:12)
[2022-04-16] MEDS ORDERED: CEFAZOLIN 2 GM VIAL ONE (11:20)
[2022-04-16] MEDS ORDERED: Sodium Chloride 0.9% 100 ML ONE (11:20)
[2022-04-16] MEDS ORDERED: PROPOFOL 200 MG/20 ML VIAL ONE (11:33)
[2022-04-16] MEDS ORDERED: Lidocaine 1% PF 5 ML VIAL ONE (11:33)
[2022-04-16] MEDS ORDERED: Ondansetron PF 4 MG/2 ML Vial ONE (11:33)
[2022-04-16] MEDS ORDERED: Ketorolac Tromethamine 30 MG/ML VIAL ONE (11:33)
[2022-04-16] MEDS ORDERED: Rocuronium Bromide 10 MG/ML (10ML VIAL) ONE (11:33)
[2022-04-16] MEDS ORDERED: Glycopyrrolate 0.2 MG/ML 5 ML SYRINGE ONE (11:33)
[2022-04-16] MEDS ORDERED: ePHEDrine 50 MG/ML VIAL ONE (11:33)
[2022-04-16] MEDS ORDERED: Dexamethasone 20 MG/5 ML VIAL ONE (11:33)
[2022-04-16] MEDS ORDERED: Ondansetron HCl/PF 4 MG/2 ML Vial IVP PRN (12:54)
[2022-04-16] MEDS ORDERED: Promethazine HCl 25 MG/ML VIAL IVPB PRN (12:54)
[2022-04-16] MEDS ORDERED: Promethazine HCl 25 MG/ML VIAL IM PRN ×2 (12:54→13:02)
[2022-04-16] MEDS ORDERED: HYDROmorphone 2 MG/ML VIAL SLOW IVP PRN (12:54)
[2022-04-16] MEDS ORDERED: Dextrose 5% in Water 1,000 ML IV PRN (13:02)
[2022-04-16] MEDS ORDERED: Ondansetron PF 4 MG/2 ML Vial IVP PRN (13:02)
[2022-04-16] MEDS ORDERED: Morphine 2 MG/ML VIAL SLOW IVP PRN (13:02)
[2022-04-16] MEDS ORDERED: hydrALAZINE 20 MG/ML VIAL SLOW IVP PRN (13:02)
[2022-04-16] MEDS ORDERED: diphenhydrAMINE 50 MG/ML VIAL IVP PRN (13:02)
[2022-04-16] MEDS ORDERED: Morphine 4 MG/ML VIAL SLOW IVP PRN (13:02)
[2022-04-16] MEDS ORDERED: Hydrocodone-Acetamin 15 ML UDCUP PO PRN (13:02)
[2022-04-16] MEDS ORDERED: Dextrose 50% Abboject 50 ML SYRINGE SLOW IVP PRN (13:02)
[2022-04-16] MEDS ORDERED: Fentanyl 100 MCG/2 ML VIAL ONE ×3 (13:37→14:22)
[2022-04-16] MEDS: D5 1/2 NS w/20 mEq KCL 1,000 ML IV SCH (17:06)
[2022-04-16] MEDS: Ketorolac Tromethamine 30 MG/ML VIAL IVP SCH ×2 (17:06→23:01)
[2022-04-16] MEDS: CEFAZOLIN 2 GM in Sodium Chloride 0.9% 100 ML IVPB SCH (20:32)
[2022-04-17] MEDS: D5 1/2 NS w/20 mEq KCL 1,000 ML IV SCH ×3 (00:56→13:42)
[2022-04-17] MEDS: CEFAZOLIN 2 GM in Sodium Chloride 0.9% 100 ML IVPB SCH (04:46)
[2022-04-17] MEDS: Ketorolac Tromethamine 30 MG/ML VIAL IVP SCH ×2 (05:02→10:57)
[2022-04-17 05:10] VITALS: TEMP 97.8
[2022-04-17 06:02] LABS: #Basophils 0.1 thou/uL (0.0-0.2); #Eosinphils 0.1 thou/uL (0.0-0.7); #Lymphocytes 1.8 thou/uL (1.20-3.40); #Monocytes 0.5 thou/uL (0.11-0.59); #Neutrophils 4.8 thou/uL (1.40-6.50); %Lymphocytes 24.4 % (21.0-51.0); %Monocytes 6.7 % (0.0-10.0); %Neutrophils 66.9 % (42.0-75.0); Hemoglobin 11.4 g/dL (12.0-16.0); Mean Corpuscular HGB CONC 30.6 g/dL (32.0-36.0); Mean Corpuscular Hemoglobin 25.5 pg (27.0-31.0); Mean Corpuscular Volume 83.5 fL (78.0-98.0); Mean Platelet Volume 9.2 fL (7.4-10.4); Platelet Count 185 thou/uL (130-400); RBC Distribution Width 14.1 % (11.5-14.5); Red Blood Cell (RBC) Count 4.45 mill/uL (4.20-5.40); White Blood Cell (WBC) Count 7.2 thou/uL (4.8-10.8)
[2022-04-17 06:33] LABS: Anion Gap 12 mmol/L (10-20); BUN (Urea Nitrogen) 13 mg/dL (9.8-20.1); Calc. Creatinine Clearance 181 mL/min (70-130); Carbon Dioxide 26 mmol/L (22-29); Chloride 103 mmol/L (98-107); Estimated GFR 95; Glucose 91 mg/dL (70-105); Sodium 137 mmol/L (136-145)
[2022-04-17] MEDS ORDERED: Enoxaparin Sodium 40 MG/0.4 ML SYRINGE SC SCH (09:00)
[2022-04-17] MEDS ORDERED: Pantoprazole 40 MG VIAL IVP SCH (09:00)
[2022-04-17 09:18] VITALS: BP 126/81
== END 2022-04-17 15:30 | disposition home or self-care (01) | DRG 621 ==
LOC: SJJU 04-16 09:19
PROVIDERS: ADMIT Surgery; ATTEND Surgery
PROC: 0DB64Z3 Excision of Stomach, Percutaneous Endoscopic Approach, Vertical (ICD-10-PCS; principal; 2022-04-16)
DX: E66.01 Morbid (severe) obesity due to excess calories (principal); K66.0 Peritoneal adhesions (postprocedural) (postinfection); Z88.8 Allergy status to other drugs, medicaments and biological substances; Z98.890 Other specified postprocedural states; Z98.891 History of uterine scar from previous surgery; Z68.43 Body mass index [BMI] 50.0-59.9, adult
CPT/HCPCS: 36415; 71046; 80048; 85025; 88307; 88342; 93005; 93010; C9113; J0690; J1100; J1170; J1644; J1650; J1885; J2405; J2704; J3010; J3480; J3490; S0020; U0003; U0005

== ENCOUNTER 2022-04-14 13:04 | Outpatient (CLI) | payer BC | END 2022-04-14 13:05 | disposition home or self-care (01) | LOC: LABBT 13:04 | PROVIDERS: ATTEND Surgery | DX: Z01.818 Encounter for other preprocedural examination (principal); E66.01 Morbid (severe) obesity due to excess calories; Z20.822 Contact with and (suspected) exposure to COVID-19 | CPT/HCPCS: 71046; 93005; 93010; U0003; U0005 ==

== ENCOUNTER 2022-07-14 13:38 | Outpatient (CLI) | payer BC | END 2022-07-14 13:39 | disposition home or self-care (01) | LOC: BICMAMMO 13:38 | PROVIDERS: ATTEND Family Medicine | DX: N64.52 Nipple discharge (principal) | CPT/HCPCS: 77066; G0279 ==

== ENCOUNTER 2023-04-02 14:41 | Outpatient (CLI) | payer BC ==
[2023-04-02 15:39] LABS: #Basophils 0.1 10x3/uL (0.0-0.2); #Eosinphils 0.2 10x3/uL (0.0-0.5); #Monocytes 0.5 10x3/uL (0.0-1.1); #Neutrophils 4.1 10x3/uL (1.5-8.4); %Basophils 0.8 % (0.0-2.0); %Eosinophils 2.2 % (0.0-6.0); %Lymphocytes 35.4 % (18.0-47.0); %Monocytes 7.1 % (0.0-10.0); %Neutrophils 54.4 % (40.0-75.0); Hemoglobin 12.4 g/dL (12.0-15.5); Mean Corpuscular HGB CONC 30.4 g/dL (32.0-36.0); Mean Corpuscular Hemoglobin 24.8 pg (27.0-33.0); Mean Corpuscular Volume 81.4 fl (81.6-98.3); Mean Platelet Volume 11.4 fl (7.4-10.4); Platelet Count 236 10x3/uL (150-450); RBC Distribution Width 15.9 % (11.5-14.5); Red Blood Cell (RBC) Count 5.01 10x6/uL (3.90-5.03); White Blood Cell (WBC) Count 7.6 10x3/uL (3.5-10.5)
[2023-04-02 16:17] LABS: ALT (SGPT) 18 U/L (8-55); AST (SGOT) 24 U/L (5-34); Albumin 4.1 g/dL (3.5-5.0); Alkaline Phosphatase 92 U/L (40-110); Anion Gap 14 mmol/L (10-20); BUN (Urea Nitrogen) 18 mg/dL (9.8-20.1); Bilirubin, Total 0.4 mg/dL (0.2-1.2); Calc. Creatinine Clearance 0 mL/min (70-130); Calcium 9.2 mg/dL (7.8-10.44); Carbon Dioxide 25 mmol/L (22-29); Chloride 104 mmol/L (98-107); Estimated GFR 93; Glucose 88 mg/dL (70-105); Potassium 4.6 mmol/L (3.5-5.1); Protein, Total 7.1 g/dL (6.0-8.3); Sodium 138 mmol/L (136-145)
== END 2023-04-02 14:42 | disposition home or self-care (01) ==
LOC: LABBT 14:41
PROVIDERS: ATTEND Surgery
DX: Z01.818 Encounter for other preprocedural examination (principal); K42.9 Umbilical hernia without obstruction or gangrene
CPT/HCPCS: 80053; 82306; 82607; 84207; 84425; 85025; 93005; 93010

== ENCOUNTER 2023-04-06 06:04 | Day surgery (SDC) | payer BC ==
[2023-04-02 14:58] VITALS: BMI 42.0
[2023-04-06] MEDS ORDERED: Bupivacaine/Epinephrine 0.25% 30 ML VIAL ONE (06:50)
[2023-04-06] MEDS ORDERED: SUGAMMADEX SODIUM 200 MG/2 ML VIAL ONE (06:55)
[2023-04-06] MEDS ORDERED: fentaNYL PF 100 MCG/2 ML SYRINGE ONE (06:55)
[2023-04-06] MEDS ORDERED: Dexmedetomidine 200 MCG/2 ML VIAL ONE (06:55)
[2023-04-06] MEDS ORDERED: Bupivacaine HCl 0.5%/Epinephrine 1:200,000/PF 30 ml Vial ONE (07:02)
[2023-04-06] MEDS ORDERED: CEFAZOLIN 2 GM VIAL ONE (07:19)
[2023-04-06] MEDS ORDERED: Sodium Chloride 0.9% 100 ML ONE (07:19)
[2023-04-06] MEDS ORDERED: Ondansetron PF 4 MG/2 ML Vial ONE (07:34)
[2023-04-06] MEDS ORDERED: PROPOFOL 200 MG/20 ML VIAL ONE (07:34)
[2023-04-06] MEDS ORDERED: Rocuronium Bromide 10 MG/ML (10ML VIAL) ONE (07:34)
[2023-04-06] MEDS ORDERED: Dexamethasone 20 MG/5 ML VIAL ONE (07:34)
[2023-04-06] MEDS ORDERED: Lidocaine 1% PF 5 ML VIAL ONE (07:34)
[2023-04-06] MEDS ORDERED: fentaNYL 50 mcg/mL 1 mL Vial ONE ×2 (08:53→09:01)
[2023-04-06] MEDS ORDERED: HYDROcodone/Acetaminophen 5/325 mg Tablet ONE (10:17)
== END 2023-04-06 11:00 | disposition home or self-care (01) ==
LOC: SDC 06:04
PROVIDERS: ATTEND Surgery
PROC: 0WUF0JZ Supplement Abdominal Wall with Synthetic Substitute, Open Approach (ICD-10-PCS; principal; 2023-04-06)
DX: K42.9 Umbilical hernia without obstruction or gangrene (principal); I10 Essential (primary) hypertension; F32.A Depression, unspecified; E66.01 Morbid (severe) obesity due to excess calories; Z68.41 Body mass index [BMI] 40.0-44.9, adult; Z79.899 Other long term (current) drug therapy; Z90.710 Acquired absence of both cervix and uterus; Z87.891 Personal history of nicotine dependence; Z88.8 Allergy status to other drugs, medicaments and biological substances
CPT/HCPCS: 84207; 84425; C1781; J1100; J2405; J2704; J3010; J3490

== ENCOUNTER 2023-08-21 14:10 | Outpatient (CLI) | payer BC ==
[2023-08-21 15:34] LABS: #Basophils 0.1 10x3/uL (0.0-0.2); #Eosinphils 0.2 10x3/uL (0.0-0.5); #Monocytes 0.5 10x3/uL (0.0-1.1); %Basophils 0.7 % (0.0-2.0); %Eosinophils 2.3 % (0.0-6.0); %Lymphocytes 32.9 % (18.0-47.0); %Monocytes 6.6 % (0.0-10.0); %Neutrophils 57.2 % (40.0-75.0); Hematocrit 41.3 % (34.9-44.5); Hemoglobin 13.1 g/dL (12.0-15.5); Mean Corpuscular HGB CONC 31.7 g/dL (32.0-36.0); Mean Corpuscular Hemoglobin 26.7 pg (27.0-33.0); Mean Corpuscular Volume 84.1 fl (81.6-98.3); Mean Platelet Volume 10.9 fl (7.4-10.4); Platelet Count 199 10x3/uL (150-450); RBC Distribution Width 14.7 % (11.5-14.5); Red Blood Cell (RBC) Count 4.91 10x6/uL (3.90-5.03)
[2023-08-21 15:50] LABS: ALT (SGPT) 14 U/L (8-55); AST (SGOT) 18 U/L (5-34); Alkaline Phosphatase 80 U/L (40-110); Anion Gap 12 mmol/L (10-20); BUN (Urea Nitrogen) 16 mg/dL (9.8-20.1); Bilirubin, Total 0.5 mg/dL (0.2-1.2); Calc. Creatinine Clearance 0 mL/min (70-130); Carbon Dioxide 26 mmol/L (22-29); Chloride 107 mmol/L (98-107); Estimated GFR 88; Glucose 76 mg/dL (70-105); Potassium 4.2 mmol/L (3.5-5.1); Sodium 141 mmol/L (136-145)
[2023-08-21 15:51] LABS: Bilirubin, Direct 0.2 mg/dL (0.1-0.3); Cardiac Risk 3.4 (Less than 4.5)
[2023-08-21 16:02] LABS: Thyroid Stimulating Hormone 0.6767 uIU/mL (0.35-4.94)
[2023-08-21 22:02] LABS: Vitamin D, 25 Hydroxy 26.1 ng/ml (> 30.0)
== END 2023-08-21 14:11 | disposition home or self-care (01) ==
LOC: LABBT 14:10
PROVIDERS: ATTEND Surgery
DX: Z01.818 Encounter for other preprocedural examination (principal); K43.9 Ventral hernia without obstruction or gangrene
CPT/HCPCS: 80053; 80061; 82248; 82306; 82607; 82746; 84207; 84425; 84443; 85025; 93005; 93010

== ENCOUNTER 2023-08-24 07:12 | Day surgery (SDC) | payer BC ==
[2023-08-21 14:44] VITALS: BMI 43.3
[2023-08-24] MEDS ORDERED: EPINEPHrine 1 MG/ML VIAL ONE (09:17)
[2023-08-24] MEDS ORDERED: Bupivacaine 0.25% HCL 30 ML VIAL ONE (09:17)
[2023-08-24] MEDS ORDERED: fentaNYL 50 mcg/mL 1 mL Vial ONE (09:21)
[2023-08-24] MEDS ORDERED: SUGAMMADEX SODIUM 200 MG/2 ML VIAL ONE (09:21)
[2023-08-24] MEDS ORDERED: Famotidine/PF 20 mg/2ml Vial ONE (09:21)
[2023-08-24] MEDS ORDERED: CEFAZOLIN 2 GM VIAL ONE (09:29)
[2023-08-24] MEDS ORDERED: Sodium Chloride 0.9% 100 ML ONE (09:29)
[2023-08-24] MEDS ORDERED: Dexamethasone 20 MG/5 ML VIAL ONE (09:35)
[2023-08-24] MEDS ORDERED: Ketorolac Tromethamine 30 MG/ML VIAL ONE (09:35)
[2023-08-24] MEDS ORDERED: Metoclopramide HCl 10 MG/2 ML VIAL ONE (09:35)
[2023-08-24] MEDS ORDERED: Lidocaine 1% PF 5 ML VIAL ONE (09:35)
[2023-08-24] MEDS ORDERED: PROPOFOL 200 MG/20 ML VIAL ONE (09:35)
[2023-08-24] MEDS ORDERED: Ondansetron PF 4 MG/2 ML Vial ONE (09:35)
[2023-08-24] MEDS ORDERED: Rocuronium Bromide 10 MG/ML (10ML VIAL) ONE (09:35)
[2023-08-24] MEDS ORDERED: hydrALAZINE 20 MG/ML VIAL ONE (11:10)
[2023-08-24] MEDS ORDERED: HYDROcodone/Acetaminophen 5/325 mg Tablet ONE (12:09)
== END 2023-08-24 13:20 | disposition home or self-care (01) ==
LOC: SDC 07:12
PROVIDERS: ATTEND Surgery
PROC: 0WUF4JZ Supplement Abdominal Wall with Synthetic Substitute, Percutaneous Endoscopic Approach (ICD-10-PCS; principal; 2023-08-24)
DX: K43.2 Incisional hernia without obstruction or gangrene (principal); I10 Essential (primary) hypertension; E66.01 Morbid (severe) obesity due to excess calories; Z68.41 Body mass index [BMI] 40.0-44.9, adult; Z87.891 Personal history of nicotine dependence; Z90.710 Acquired absence of both cervix and uterus; Z88.8 Allergy status to other drugs, medicaments and biological substances; Z79.899 Other long term (current) drug therapy
CPT/HCPCS: C1781; J0171; J0360; J3010; J3490; S0020; S0028

== ENCOUNTER 2023-10-22 13:49 | Outpatient (CLI) | payer BC | END 2023-10-22 13:50 | disposition home or self-care (01) | LOC: SCSRAD 13:49 | PROVIDERS: ATTEND Family Medicine | DX: R06.02 Shortness of breath (principal) | CPT/HCPCS: 71046 ==

== ENCOUNTER 2024-08-22 14:36 | Outpatient (CLI) | payer BC ==
[2024-08-22 15:40] LABS: #Basophils 0.04 10x3/uL (0.0-0.2); %Basophils 0.5 % (0.0-1.0); %Eosinophils 1.7 % (0.0-10.0); %Monocytes 5.5 % (0.0-10.0); %Neutrophils 68.1 % (42.0-75.0); Hematocrit 39.6 % (36.0-47.0); Hemoglobin 12.3 g/dL (12.0-16.0); Mean Corpuscular HGB CONC 31.1 g/dL (32.0-36.0); Mean Corpuscular Hemoglobin 25.4 pg (27.0-31.0); Mean Corpuscular Volume 81.8 fL (78.0-98.0); Mean Platelet Volume 10.6 fL (7.4-10.4); Platelet Count 221 10x3/uL (130-400); RBC Distribution Width 14.4 % (11.5-14.5); Red Blood Cell (RBC) Count 4.84 mill/uL (4.20-5.40)
[2024-08-22 15:55] LABS: Anion Gap 13 mmol/L (10-20); BUN (Urea Nitrogen) 17 mg/dL (9.8-20.1); Calc. Creatinine Clearance 0 mL/min (70-130); Calcium 9.4 mg/dL (7.8-10.44); Carbon Dioxide 28 mmol/L (22-29); Chloride 103 mmol/L (98-107); Estimated GFR 85; Glucose 110 mg/dL (70-105); Potassium 3.8 mmol/L (3.5-5.1); Sodium 140 mmol/L (136-145)
[2024-08-22 15:56] LABS: INR-International Normal Ratio 1.1; PTT 30.8 sec (22.9-36.1); Prothrombin Time 13.8 sec (12.0-14.7)
[2024-08-22 18:06] LABS: Bacteria/HPF None Seen HPF (None Seen); Bilirubin Negative (Negative); Blood, Urine 3+ (Negative); Calcium Oxalate Crystals 4+ HPF (None Seen); Clarity Turbid (Clear); Glucose, Urine (Dipstick) Normal (Negative); Ketone, Urine Negative (Negative); Leukocyte 500 Leu/uL (Negative); Nitrite Negative (Negative); Protein, Urine (Dipstick) 30 mg/dL (Neg-Trace); RBC/HPF Greater than 50 HPF (0-3); Specific Gravity, Urine 1.023 (1.002-1.036); pH, Urine 5.5 (5.0-9.0)
== END 2024-08-22 14:37 | disposition home or self-care (01) ==
LOC: LABBT 14:36
PROVIDERS: ATTEND Urology
DX: Z01.812 Encounter for preprocedural laboratory examination (principal); I10 Essential (primary) hypertension; N20.0 Calculus of kidney; E66.01 Morbid (severe) obesity due to excess calories; R35.0 Frequency of micturition; M51.86 Other intervertebral disc disorders, lumbar region; Z98.84 Bariatric surgery status
CPT/HCPCS: 80048; 81001; 85025; 85610; 85730; 87086

== ENCOUNTER 2024-08-31 08:31 | Day surgery (SDC) | payer BC ==
[2024-08-22 14:58] VITALS: BMI 50.1
[2024-08-31] MEDS ORDERED: PROPOFOL 20 ML ONE (10:15)
[2024-08-31] MEDS ORDERED: LevoFLOXacin D5W 500 mg (100 mL) BAG ONE (10:22)
[2024-08-31] MEDS ORDERED: fentaNYL PF 100 MCG/2 ML SYRINGE ONE (10:50)
[2024-08-31] MEDS ORDERED: Iopamidol 30 ML ONE (10:51)
[2024-08-31] MEDS ORDERED: cefTRIAXone (ROCEPHIN) 2 GM VIAL ONE (10:59)
[2024-08-31] MEDS ORDERED: Sodium Chloride 0.9% 100 ML ONE (10:59)
[2024-08-31] MEDS ORDERED: Sodium Chloride 0.9% 250 ML 250 ML ONE (11:04)
[2024-08-31] MEDS ORDERED: PHENYLEPHRINE-NS 100 MCG/ML 10 ML SYRINGE ONE (11:47)
[2024-08-31] MEDS ORDERED: Glycopyrrolate 0.2 MG/ML 5 ML SYRINGE ONE (11:47)
[2024-08-31] MEDS ORDERED: Phenazopyridine HCl 100 MG TAB ONE (12:35)
[2024-08-31] MEDS ORDERED: HYDROcodone/Acetaminophen 5/325 mg Tablet ONE (14:16)
== END 2024-08-31 14:40 | disposition home or self-care (01) ==
LOC: SDC 08:31
PROVIDERS: ATTEND Urology
PROC: 0T768DZ Dilation of Right Ureter with Intraluminal Device, Via Natural or Artificial Opening Endoscopic (ICD-10-PCS; principal; 2024-08-31)
PROC: 0TC68ZZ Extirpation of Matter from Right Ureter, Via Natural or Artificial Opening Endoscopic (ICD-10-PCS; principal; 2024-08-31)
DX: N20.0 Calculus of kidney (principal); E66.9 Obesity, unspecified; F32.A Depression, unspecified; E66.01 Morbid (severe) obesity due to excess calories; G47.33 Obstructive sleep apnea (adult) (pediatric); M51.9 Unspecified thoracic, thoracolumbar and lumbosacral intervertebral disc disorder; I10 Essential (primary) hypertension; Z98.84 Bariatric surgery status; R35.0 Frequency of micturition; Z87.891 Personal history of nicotine dependence; Z87.59 Personal history of other complications of pregnancy, childbirth and the puerperium; Z88.8 Allergy status to other drugs, medicaments and biological substances; Z68.43 Body mass index [BMI] 50.0-59.9, adult
CPT/HCPCS: 74018; 74420; C1747; C1769; C2617; J0696; J1956; J2704; J7050; Q9967